=== PATIENT | female | born 1980 ===

== ENCOUNTER 2017-03-14 12:45 | Emergency (ER) | payer OTHER ==
[~2017-03-14] VITALS: Ht 167.6 cm; Wt 62.6 kg
[2017-03-14] MEDS ORDERED: OSEL75CA PO (15:26)
== END 2017-03-14 15:30 | disposition home or self-care (01) ==
LOC: ER 12:45
DX: J09.X2 Influenza due to identified novel influenza A virus with other respiratory manifestations (principal); B34.9 Viral infection, unspecified